=== PATIENT | female | born 1965 | race Asian ===

== ENCOUNTER 2023-09-11 21:31 | Emergency (ER) | payer MEDICAID ==
[~2023-09-11] VITALS: Ht 157.5 cm; Wt 68.0 kg
[2023-09-11 21:37] VITALS: BP 111/71; PULSE 101; RESP 18; TEMP 98.4; O2SAT 99
[2023-09-11 22:21] LABS: HEMATOCRIT. 38.8 % (36.0-48.0); HEMOGLOBIN. 12.3 g/dL (12.0-16.0); MEAN CORPUSCULAR HEMOGLOBIN 22.7 pg (28.0-32.0); MEAN CORPUSCULAR HGB CONC 31.7 g/dL (31.0-37.0); MEAN CORPUSCULAR VOLUME 71.5 fL (81.0-99.0); MEAN PLATELET VOLUME 7.2 fl (7.4-10.4); PLATELET 286 x1000/uL (130-400); RED BLOOD CELL COUNT 5.43 mill/uL (4.2-5.4); WHITE BLOOD COUNT 13.2 x1000/uL (4.5-11.0)
[2023-09-11 22:22] LABS: DIFFERENTIAL COMMENT 1
[2023-09-11 22:26] LABS: CHLORIDE 106 mEq/L (98-107); POTASSIUM 3.8 mEq/L (3.5-5.1); SODIUM 137 mEq/L (136-145)
[2023-09-11 22:27] LABS: CARBON DIOXIDE 23 mEq/L (21-32)
[2023-09-11 22:32] LABS: CREATININE 0.7 mg/dL (0.6-1.0); GLUCOSE 184 mg/dL (70-105); UREA NITROGEN BLOOD 9 mg/dL (9-23)
[2023-09-11 22:36] LABS: TROPONIN I HIGH SENSITIVITY < 4 ng/L (3.0-34)
[2023-09-11 23:13] LABS: PLATELET ESTIMATE NORMAL
[2023-09-11 23:14] LABS: ANISOCYTOSIS 1+; HYPOCHROMASIA 1+; MICROCYTOSIS 2+; OVALOCYTES 1+
== END 2023-09-12 02:05 | disposition left against medical advice (07) ==
LOC: ER 21:31
DX: R06.02 Shortness of breath (principal); Z53.21 Procedure and treatment not carried out due to patient leaving prior to being seen by health care provider
CPT/HCPCS: 36415; 71045; 80048; 84484; 85025; 99284